=== PATIENT | male | born 1970 | race Caucasian/White ===

== ENCOUNTER 2018-08-04 11:10 | Emergency (ER) | payer OTHER ==
[2018-08-04 11:16] VITALS: BP 138/99; PULSE 82; TEMP 98.7; BMI 25.8
--- NOTE | 2018-08-04 11:17 | PDOC ---
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 No significant trauma. Complains of pain in the left sacral area of the low back, worse with movement and change of position. No radiation of the pain to the legs, no distal numbness tingling pain or weakness, and no difficulty ambulating. Review of systems: As above. Otherwise negative Past medical history: Healthy male, denies significant medical or surgical problems past her present, no medication other than Tylenol for his back pain Social/family history reviewed and noncontributory except for above Physical exam: Alert and oriented well-developed well-nourished no acute distress cheerful and cooperative Afebrile, vital signs normal Fully ambulatory and in no significant discomfort with movement or ambulation LS spine: There is slight loss of the normal lumbar lordosis. There is no deformity or inflammation of the LS spine. There is no point tenderness over the vertebral bodies of the musculature. Flexion and extension are intact with minimal discomfort. Straight leg raising is negative. There are no distal sensory or motor deficits in the lower extremities. There is no bowel or bladder incontinence or retention Impression: Minor low back strain Plan: Rest and heat, analgesics and muscle relaxants, follow-up if no improvement. Fully ambulatory and in no discomfort that is significant upon discharge with family to follow-up as directed Past History - Past Medical History Allergies/Adverse Reactions: Allergies Allergy/AdvReac Type Severity Reaction Status Date / Time No Known Allergies Allergy Verified 08/04/18 11:11 Home Medications: Ambulatory Orders Acetaminophen [Tylenol] 650 mg PO ONCE PRN 08/04/18 Cyclobenzaprine HCl [Flexeril] 10 mg PO TID #10 tablet 08/04/18 COPD: No - Immunization History Td Vaccination: No - Suicide/Smoking/Psychosocial Hx Smoking History: Never smoked Have you smoked in the past 12 months: No Information on smoking cessation initiated: No Hx Alcohol Use: Yes (SOCIAL) Drug/Substance Use Hx: No *Physical Exam - Vital Signs Last Vital Signs Temp Pulse Resp BP Pulse Ox 98.7 F 82 20 138/99 100 08/04/18 11:10 08/04/18 11:10 08/04/18 11:10 08/04/18 11:10 08/04/18 11:10 *DC/Admit/Observation/Transfer Diagnosis at time of Disposition: Low back strain Qualifiers: Encounter type: initial encounter Qualified Code(s): S39.012A - Strain of muscle, fascia and tendon of lower back, initial encounter - Discharge Dispostion Disposition: HOME Condition at time of disposition: Stable Decision to Admit order: No - Prescriptions Prescriptions: Cyclobenzaprine HCl [Flexeril] 10 mg PO TID #10 tablet - Referrals Referrals: Rj Coelho MD [Staff Physician] - 3 days - Patient Instructions Printed Discharge Instructions: DI for Low Back Pain Additional Instructions: Rest, heat, Aleve and muscle relaxant as directed. You may alternate Aleve and Tylenol if this is more effective for pain. Avoid the sitting position. Lie on a firm surface and use heat. If no improvement or if symptoms worsen, see Back Specialist as directed 3-5 days. - Post Discharge Activity Forms/Work/School Notes: Back to Work
[2018-08-04] MEDS ORDERED: CYCLOBENZAPRINE HCL 10 MG TABLET (FP) PO ONE (11:29)
[2018-08-04] MEDS ORDERED: CYCLOBENZAPRINE HCL 10 MG TABLET (FP) ONE (11:29)
== END 2018-08-04 11:37 | disposition home or self-care (01) ==
LOC: FER 11:10
DX: S39.012A Strain of muscle, fascia and tendon of lower back, initial encounter (principal); X58.XXXA Exposure to other specified factors, initial encounter; Y93.89 Activity, other specified; Y92.89 Other specified places as the place of occurrence of the external cause
CPT/HCPCS: 99281-25

== ENCOUNTER 2019-12-23 15:10 | Emergency (ER) | payer OTHER ==
--- NOTE | 2019-12-23 15:21 | PDOC ---
History of Present Illness - General Chief Complaint: Redness To Affected Area Stated Complaint: LEFT INNER CALF REDNESS Time Seen by Provider: 12/23/19 15:20 - History of Present Illness Initial Comments: HPI: 49yo M with no reported PMH presenting with area of redness, swelling, tenderness on his left inner leg. 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 The area was itchy and the patient scratched the area. Wiped the area with an alcohol pad on Sunday. Since the past couple days, patient has noticed redness, swelling, and tenderness in the area. No bleeding or drainage of pus. No fevers or chills. PCP: does not remember the name ROS: Constitutional: no fever, no chills HEENT: no throat pain, no dysphagia Cardiovascular: no chest pain, no palpitations Respiratory: no cough, no shortness of breath Gastrointestinal: no abdominal pain, no nausea Genitourinary: no dysuria, no hematuria Musculoskeletal: no myalgia, no arthralgia Skin: +redness +itching Neurologic: no headache, no weakness Psych: no agitation, no anxiety PE: General: Awake, alert, and fully oriented, in no acute distress Head: No signs of trauma Eyes: EOMI, sclera anicteric ENT: Moist mucus membranes Neck: Normal ROM, supple Lungs: Lungs clear, Normal breath sounds Cardio: Regular rhythm, S1 and S2 present Abdomen: Soft, nontender. No guarding, no rebound, no masses Extremities: Normal range of motion, Distal pulses present; area of redness on upper medial aspect of left calf; two points consistent with insect bug bites present with scabs, mild tenderness to palpation, mild warmth, no fluctuance, no discharge Skin: Warm, Dry, normal turgor Neurologic: Cranial nerves II through XII grossly intact. Normal speech ED Course/MDM: DDX including but not limited to cellulitis, contact dermatitis, DVT, Will treat the area like cellulitis, though there is also suspicion for contact dermatitis as patient used an alcohol pad on the area Doubt DVT as patient is without risk factors (no immobilization, no recent travel, no SOB, no hx of malignancy/PE/DVT), no cords palpable, and no calf tenderness 12/23/19 15:20 Prescription for keflex po and bacitracin topical sent to pharmacy Instructed patient to examine the rash daily; concern for evolution to bulls-eye rash of Lyme Told him to stop scratching the area To follow up with primary care physician Return precautions Stable for discharge 12/23/19 15:50 Past History - Medical History Allergies/Adverse Reactions: Allergies Allergy/AdvReac Type Severity Reaction Status Date / Time No Known Allergies Allergy Verified 12/23/19 15:45 COPD: No - Immunization History Td Vaccination: No - Psycho-Social/Smoking History Smoking History: Never smoked Have you smoked in the past 12 months: No Discharge - Discharge Information Problems reviewed: Yes Clinical Impression/Diagnosis: Cellulitis Qualifiers: Site of cellulitis: extremity Site of cellulitis of extremity: lower extremity Laterality: left Qualified Code(s): L03.116 - Cellulitis of left lower limb Condition: Stable - Follow up/Referral - Patient Discharge Instructions Patient Printed Discharge Instructions: DI for Cellulitis -- Adult Additional Instructions: You came in to the emergency department for a skin problem. The area was examined and showed signs of infection. Prescription sent to your pharmacy. Take as instructed. Apply an antibiotic ointment like mupirocin, bacitracin, or neosporin to the area. Avoid scratching the area. Follow up with your primary care physician within 72 hours. Call and make an appointment to further evaluate your symptoms. Your workup is not complete until you do so. Immediate medical attention is required if you have : fevers/chills, worsening redness or hardness around the area, pain or tenderness, red streaks, fever or chills. If you think you are having an emergency, call for emergency medical services or present to the emergency department right away. - Post Discharge Activity
--- NOTE | 2019-12-23 15:22 | PDOC ---
Attending Attestation - Resident Resident Name: Kristen Carreno - ED Attending Attestation I have performed the following: I have examined & evaluated the patient, The case was reviewed & discussed with the resident, I agree w/resident's findings & plan, Exceptions are as noted - HPI HPI: 49 yo M no PMH presents with redness, swelling, itching, tenderness to L lower leg. He states he was bitten by insects approximately 5 days ago, has been scratching them since. He also wiped the area with alcohol pads. He notes that the redness and pain has been increasing since then. - Physicial Exam PE: GENERAL: Awake, alert, and fully oriented, in no acute distress HEAD: No signs of trauma EXTREMITIES: Normal range of motion, no edema. No clubbing or cyanosis. No cords, erythema, or tenderness NEUROLOGICAL: Cranial nerves II through XII grossly intact. Normal speech, normal gait. Motor and sensation intact SKIN: Warm, dry, normal turgor. +Well-demarcated area of erythema to the L proximal lower leg, just inferior to the knee, medial surface, with two small puncture wounds. +Warmth. - Medical Decision Making 12/23/19 15:55 Suspect cellulitis with an overlying contact dermatitis possibly from application of alcohol to the wound. Abx, outpatient f/u. Discharge - Discharge Information Problems reviewed: Yes Clinical Impression/Diagnosis: Cellulitis Qualifiers: Site of cellulitis: extremity Site of cellulitis of extremity: lower extremity Laterality: left Qualified Code(s): L03.116 - Cellulitis of left lower limb Condition: Stable Disposition: HOME - Additional Discharge Information Prescriptions: Cephalexin Monohydrate [Keflex -] 500 mg PO Q6H #28 capsule - Follow up/Referral - Patient Discharge Instructions Patient Printed Discharge Instructions: DI for Cellulitis -- Adult Additional Instructions: You came in to the emergency department for a skin problem. The area was examined and showed signs of infection. Prescription sent to your pharmacy. Take as instructed. Apply an antibiotic ointment like mupirocin, bacitracin, or neosporin to the area. Avoid scratching the area. Follow up with your primary care physician within 72 hours. Call and make an appointment to further evaluate your symptoms. Your workup is not complete until you do so. Immediate medical attention is required if you have : fevers/chills, worsening redness or hardness around the area, pain or tenderness, red streaks, fever or chills. If you think you are having an emergency, call for emergency medical services or present to the emergency department right away. - Post Discharge Activity
[2019-12-23 15:28] VITALS: BP 143/87; PULSE 88; TEMP 98.1; BMI 26.6
== END 2019-12-23 16:10 | disposition home or self-care (01) ==
LOC: FER 15:10
DX: L03.116 Cellulitis of left lower limb (principal)
CPT/HCPCS: 99283-25